=== PATIENT | male | born 1995 ===

== ENCOUNTER → 2022-06-18 | Outpatient (CLI) | payer OTHER | END | disposition home or self-care (01) | LOC: RAD 08:05 | PROVIDERS: ATTEND Physical Medicine & Rehabilitation | DX: M54.59 Other low back pain (principal) ==

== ENCOUNTER 2025-06-07 08:24 | Outpatient (CLI) | payer OTHER | END 2025-06-07 08:40 | disposition home or self-care (01) | LOC: SONOGRAMA 08:24 | DX: M75.41 Impingement syndrome of right shoulder (principal); M75.51 Bursitis of right shoulder ==